=== PATIENT | female | born 1965 | race Caucasian/White ===

== ENCOUNTER 2018-04-11 07:01 | Outpatient (CLI) | payer BC ==
--- NOTE | 2018-04-11 13:16 | NM ---
RADIONUCLIDE GASTRIC EMPTYING SCAN: HISTORY: Nausea, vomiting, unspecified. RADIOPHARMACEUTICAL: 2 mCi Technetium 99m-sulfur colloid administered orally in scrambled eggs. FINDINGS: There is 55% emptying of the ingested gastric contents at 1 hour, 73% emptying at 2 hours, 95% emptyi ng at 3 hours, and 99% emptying at 4 hours. The calculated gastric emptying half-time measures 55 minutes. IMPRESSION: Normal exam. POS: [facility]
== END 2018-04-11 07:02 | disposition home or self-care (01) ==
LOC: NM 07:01
PROVIDERS: ATTEND Internal Medicine Gastroenterology
DX: R11.2 Nausea with vomiting, unspecified (principal)
CPT/HCPCS: 78264; A9541